=== PATIENT | male | born 1990 | race Caucasian/White ===

== ENCOUNTER 2021-06-08 21:58 | Emergency (ER) | payer OTHER ==
[2021-06-08] MEDS ORDERED: IBUPROFEN800 MG PO (23:02)
[2021-06-08] MEDS ORDERED: CEPHALEXIN500 M1 PO (23:02)
== END 2021-06-08 23:11 | disposition home or self-care (01) ==
LOC: ER1 21:58
DX: S61.211A Laceration without foreign body of left index finger without damage to nail, initial encounter (principal); Z20.822 Contact with and (suspected) exposure to COVID-19; Z23 Encounter for immunization; F17.210 Nicotine dependence, cigarettes, uncomplicated; W26.8XXA Contact with other sharp object(s), not elsewhere classified, initial encounter; Y92.89 Other specified places as the place of occurrence of the external cause; Y99.0 Civilian activity done for income or pay
CPT/HCPCS: 73140; 90471; 90715; 99283; U0003